=== PATIENT | female | born 1995 | race Asian ===

== ENCOUNTER → 2018-02-22 21:41 | Emergency (ER) | payer OTHER ==
--- NOTE | 2018-02-22 22:38 | ED ---
Laceration/Wound HPI - HPI Summary HPI Summary: 22 female presents with lacerations to left leg today. States she fell off a table. no head injury or loc. no other injury. Her tetanus is up-to-date. The area is not actively bleeding. No numbness or tingling. She is able to ambulate. Has no medical conditions. Boyfriend and her are requesting that the only laceration to be closed is left thigh. They declined glue for hands and for superficial laceration of thigh. She has an avulsion to left lower leg. - History of Current Complaint Stated Complaint: SCRATCH ON LEG Time Seen by Provider: 02/22/18 22:01 Pain Intensity: 5 - Allergy/Home Medications Allergies/Adverse Reactions: Allergies Allergy/AdvReac Type Severity Reaction Status Date / Time No Known Allergies Allergy Verified 02/22/18 21:45 Home Medications: Home Medications NK [No Home Medications Reported] 02/22/18 [History Confirmed 02/22/18] PMH/Surg Hx/FS Hx/Imm Hx Endocrine/Hematology History: Denies: Hx Anticoagulant Therapy Respiratory History: Denies: Hx Asthma Infectious Disease History: No Infectious Disease History: Denies: Traveled Outside the [place] in Last 30 Days - Family History Known Family History: Negative: Diabetes - Social History Alcohol Use: None Substance Use Type: Reports: None Smoking Status (MU): Never Smoked Tobacco Review of Systems Negative: Fever Negative: Chest Pain Negative: Shortness Of Breath Positive: Other - lacerations left leg All Other Systems Reviewed And Are Negative: Yes Physical Exam Triage Information Reviewed: Yes Vital Signs On Initial Exam: Initial Vitals Temp Pulse Resp BP Pulse Ox 98.6 F 74 15 137/78 100 02/22/18 21:43 02/22/18 21:43 02/22/18 21:43 02/22/18 21:43 02/22/18 21:43 Vital Signs Reviewed: Yes Appearance: Positive: Well-Appearing Skin: Positive: Warm, Dry, Other - 4cm by 5cm avulsion to left lower leg, 2cm by 1cm triangle like laceration to left posterior thigh, superficial laceration to left pinky finger and upper thigh Head/Face: Positive: Normal Head/Face Inspection Eyes: Positive: Normal, Conjunctiva Clear ENT: Positive: Pharynx normal Respiratory/Lung Sounds: Positive: Clear to Auscultation, Breath Sounds Present Cardiovascular: Positive: Normal, RRR Musculoskeletal: Positive: Strength/ROM Intact - left leg, Other - good pulses Neurological: Positive: Normal Psychiatric: Positive: Normal Procedures - Laceration/Wound Repair 1 Location: Other - left thigh Description: Irregular Anesthesia: Local, 1.0%, Epi Length, Depth and Shape: 2cm by 1cm Irrigated w/ Saline (ccs): 300 Laceration/Wound Explored: no foreign body removed Closure: Single Layer Suture Type: Prolene Number of Sutures: 4 Layer Closure?: No Sterile Dressing Applied?: Yes - telfa and angelina Diagnostics - Vital Signs Vital Signs Temp Pulse Resp BP Pulse Ox 02/22/18 21:43 98.6 F 74 15 137/78 100 - Laboratory Lab Statement: Any lab studies that have been ordered have been reviewed, and results considered in the medical decision making process. Laceration Repair Course/Dx - Course Course Of Treatment: 22 female presents with lacerations to left leg today. States she fell off a table. no head injury or loc. no other injury. Her tetanus is up-to-date. The area is not actively bleeding. No numbness or tingling. She is able to ambulate. Has no medical conditions. Boyfriend and her are requesting that the only laceration to be closed is left thigh. They declined glue for hands and for superficial laceration of thigh. She has an avulsion to left lower leg. On exam has she is a 2cm by 1 cm laceration of left upper thigh that clean and place 4 sutures in. Has avulsion his lower legs that Place xeroform, telfa and coband. Patient declined glue to the superficial lacerations. Patient understands agrees with plan. - Differential Dx Differental Diagnoses: Abrasion, Avulsion, Laceration - Clinical Impression Provider Diagnoses: Laceration of left leg, Avulsion of skin Discharge - Sign-Out/Discharge Documenting (check all that apply): Patient Departure - Discharge Plan Condition: Good Disposition: HOME Patient Education Materials: Care For Your Stitches (ED) Referrals: No Primary Care Phys,NOPCP [Primary Care Provider] - Additional Instructions: Take Tylenol or ibuprofen for pain every 6 hours as needed Keep area clean and dry for 24 hours check dressing 24-48 hours of lower leg, redress area Return to ED or primary in 8-10 days to have sutures removed Return to ED if develop signs of infection such as fever, spreading redness, or pus. - Billing Disposition and Condition Condition: GOOD Disposition: Home
[2018-02-22 22:49] VITALS: BP 106/68
== END | disposition home or self-care (01) ==
LOC: ED 21:41
DX: S71.112A Laceration without foreign body, left thigh, initial encounter (principal); S61.217A Laceration without foreign body of left little finger without damage to nail, initial encounter; S81.812A Laceration without foreign body, left lower leg, initial encounter; W08.XXXA Fall from other furniture, initial encounter
CPT/HCPCS: 12002; 99282